=== PATIENT | male | born 1960 | race Caucasian/White ===

== ENCOUNTER → 2016-05-23 | Outpatient (CLI) | payer BC ==
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
== END | disposition home or self-care (01) ==
LOC: RADXRYALE 16:29
PROVIDERS: ATTEND Internal Medicine
DX: M25.562 Pain in left knee (principal)

== ENCOUNTER → 2016-06-06 | Outpatient (CLI) | payer BC ==
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
== END | disposition home or self-care (01) ==
LOC: RADUSWWP 10:59
PROVIDERS: ATTEND Orthopaedic Surgery
DX: M79.89 Other specified soft tissue disorders (principal); M79.662 Pain in left lower leg; M25.562 Pain in left knee
CPT/HCPCS: 93970

== ENCOUNTER 2024-11-13 05:53 | Day surgery (SDC) | payer BC ==
[2024-11-08 11:26] VITALS: BMI 29.1
[2024-11-13] MEDS ORDERED: LIDOCAINE 1% (10MG/ML) FOR IV START INTRADERMA PRN (05:55)
[2024-11-13] MEDS: IV FLUID CONTINUATION 1,000 ML IV ONE (06:35)
[2024-11-13 06:38] VITALS: TEMP 97.8
[2024-11-13] MEDS: LACTATED RINGERS 1,000 ML IV SCH (06:40)
[2024-11-13] MEDS ORDERED: LIDOCAINE 2% (PF) 20 MG/ML 5 ML VIAL ONE (07:15)
[2024-11-13] MEDS ORDERED: PROPOFOL 10 MG/ML 20 ML VIAL IV ONE (07:15)
--- NOTE | 2024-11-13 08:02 | P.PCN ---
Date of Procedure: 11/13/24 Procedure(s) Performed: Brief history: Patient is a pleasant 63-year-old white male scheduled for an elective upper endoscopy as well as colonoscopy as a part of evaluation of GERD/history of esophageal cancer diagnosed 13 years ago status post distal esophagectomy and screening for colon cancer Procedure performed: Esophagogastroduodenoscopy Colonoscopy after descending colon Preoperative diagnosis: History of esophageal cancer/GERD Screening for colon cancer Anesthesia: MAC Procedure: After informed consent was obtained from the patient was brought into the endoscopy unit and IV sedation was administered by anesthesia under continuous monitoring. Initially upper endoscopy was done. The Olympus GF 160 video endoscope was inserted inserted into the mouth and esophagus intubated without any difficulty and was gradually advanced into the distal esophagus with the gas schedule esophageal anastomosis was located 30 cm from the incisors that appeared normal. There was evidence of gastric pull-through surgery noted. The scope was advanced into the stomach and duodenum and carefully examined. The bulb and second part of the duodenum appeared normal. The scope was then withdrawn into the stomach adequately insufflated with air and upon careful examination the antrum and body, appeared normal except for mild gastritis. The scope was then withdrawn into the esophagus. The GE anastomosis was located at 30 cm to the incisors. It appeared regular with no erythema erosions or ulc erations. Rest of the esophagus appeared normal. Patient tolerated the procedure well. At this time the patient continued to remain sedation. Initial digital rectal examination was normal. Olympus CF 160 video colonoscope was then inserted into the rectum and gradually advanced to the descending colon further advancement was not possible. At this time the scope was removed and a pediatric c olonoscopy send interest in the rectum and rectum advanced into the descending colon. At this time the scope could not be advanced any further because of inguinal hernia and the scope was going into the groin and despite giving abdominal pressure and inguinal pressure I could not reduce the hernia. Multiple attempts were made by turning patient's position and continued application of pressure in the groin area despite which I could not advance the scope safely any further. At this time the scope was withdrawn. Prep was excellent. Visualized motions of the descending colon, sigmoid colon and rectum appeared normal. Retroflexion was performed in the rectum and no lesions were noted. Patient tolerated the procedure well. Impression: 1. Upper endoscopy revealed normal-appearing gastroesophageal anastomosis at 30 cm from the incisors and evidence of mild gastritis. 2. Colonoscopy up to the descending colon appeared normal with no evidence of colitis or colorectal neoplasia. The scope could not be advanced any further because of the large inguinal hernia that could not be reduced Recommendations: Findings of this examination were discussed with the patient as well as his family. He was advised to follow-up in the office in 1 week and will consider either barium enema or CT colonoscopy to evaluate the rest of the colon.
[2024-11-13 08:10] VITALS: RESP 16
[2024-11-13 08:28] VITALS: BP 107/75; PULSE 68
== END 2024-11-13 08:52 | disposition home or self-care (01) ==
LOC: ORWHC2ENDO 05:53
PROVIDERS: ATTEND Internal Medicine Gastroenterology
DX: Z12.11 Encounter for screening for malignant neoplasm of colon (principal); K40.90 Unilateral inguinal hernia, without obstruction or gangrene, not specified as recurrent; K29.70 Gastritis, unspecified, without bleeding; K21.9 Gastro-esophageal reflux disease without esophagitis; Z79.899 Other long term (current) drug therapy; Z85.01 Personal history of malignant neoplasm of esophagus
CPT/HCPCS: 45378; 43235; J2704; J2003